=== PATIENT | male | born 1940 | race Caucasian/White ===

== ENCOUNTER 2016-12-15 10:26 | Day surgery (SDC) | payer OTHER ==
[2016-12-15 11:22] VITALS: BMI 30.7
[2016-12-15] MEDS ORDERED: PROPOFOL 20 ML ONE ×2 (11:45)
[2016-12-15 12:43] VITALS: TEMP 97.5
[2016-12-15 13:00] VITALS: PULSE 60
[2016-12-15 13:19] VITALS: BP 160/86
--- NOTE | 2016-12-16 13:28 | PATH ---
Surgical Pathology Report Patient Name: JAQUELIN HUBBARD [facility]. Rec. #: [id number] /Age/Gender: 1940 (Age: 76) / M Account: [id number] Location: [facility]-ENDOSCOPY Taken: 12/15/2016 Received: 12/15/2016 Reported: 12/16/2016 Physicians: Ryan Avila D.O. Specimen(s) Received A: BX ANTRUM B: BX BODY OF STOMACH C: BX DUODENAL POLYP Clinical History Dyspepsia Gastroduodenitis Final Diagnosis A. 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 NEGATIVE FRO DYSPLASIA. IMMUNOSTAIN FOR H. PYLORI IS NEGATIVE FOR ORGANISMS. B. STOMACH, BODY, BIOPSY: GASTRIC OXYNTIC MUCOSA WITH MODERATE CHRONIC GASTRITIS. IMMUNOSTAIN FOR H. PYLORI IS NEGATIVE FOR ORGANISMS. C. DUODENUM, POLYP, BIOPSY: POLYPOID FRAGMENT OF DUODENAL MUCOSA WITH ACTIVE AND CHRONIC INFLAMMATION AND FOCAL ARACELI'S GLANDS HYPERPLASIA. NO DYSPLASIA/ADENOMA IDENTIFIED. Electronically Signed Isidoro Clemente M.D. Gross Description A. Received in formalin, labeled "biopsy antrum" are 3 schwarz, irregular portions of soft tissue ranging from 0.1-0.3 cm in greatest dimension. The specimens are submitted in toto in one cassette. B. Received in formalin, labeled "biopsy body of stomach" are 2 schwarz, irregular portions of soft tissue measuring 0.2 and 0.3 cm in greatest dimension. The specimens are submitted in toto in one cassette. C. Received in formalin, labeled "biopsy duodenal polyp" is a schwarz, irregular portion of soft tissue measuring 0.3 cm in greatest dimension. The specimen is submitted in toto in one cassette. 12/15/2016 [facility]/2016
== END 2016-12-15 13:36 | disposition home or self-care (01) ==
LOC: JASU-ENDO 10:26
PROVIDERS: ATTEND Internal Medicine Gastroenterology
PROC: 0DB68ZX Excision of Stomach, Via Natural or Artificial Opening Endoscopic, Diagnostic (ICD-10-PCS; 2016-12-15)
PROC: 0DB98ZX Excision of Duodenum, Via Natural or Artificial Opening Endoscopic, Diagnostic (ICD-10-PCS; principal; 2016-12-15 11:30)
DX: K29.70 Gastritis, unspecified, without bleeding (principal); R10.13 Epigastric pain; K29.80 Duodenitis without bleeding; K31.7 Polyp of stomach and duodenum
CPT/HCPCS: 88305-TC; 88342-TC